=== PATIENT | female | born 1980 | race Caucasian/White ===

== ENCOUNTER 2025-01-01 16:58 | Outpatient (CLI) | payer MEDICAID, SELFPAY ==
[2025-01-01 20:36] LABS: Coronavirus 19, PCR Not Detected (NotDetected); Influenza A, PCR Not Detected (NotDetected); Influenza B, PCR Not Detected (NotDetected)
--- OUTSIDE RECORDS SUMMARY | 2025-01-02 13:18 | XMS_ITS | Encounter Summary ---
[facility] Organization [facility] Address [address] [place] [address] Care Team Providers Care Language Asst Name Role Phone Oz Yanes MD Primary Care Provider [phone] Reason for Visit * Reason Comments Med Refill Encounter Details Date Type Department Care Team (Late st Contact Info) Description 08/17/[address] [facility] FAMILY MEDICINE [address] [facility] [place] [address] Oz Yanes MD [address] [place] [address] Mild mood disorder Social History Tobacco Use Types Packs/Day Years Used Date Smoking Tobacco: Every Day Cigarettes Smokeless Tobacco: Never Alcohol Use Standard Drinks/Week Comments Never 0 (1 standard drink = 0.6 oz pur e alcohol) AUDIT-C Answer Date Recorded Frequency of Alcohol Consumption Never 07/06/2019 Average Number of Drinks Not on file 020 Frequency of Binge Drinking Not on file 06/17 PHQ-2 Answer Date Recorded Retired PHQ-9: Brief Depression Severity Measure Score 1 08/11/2022 PHQ-2 Answer Date Recorded Retired PHQ-9: Brief Depression Severity Measure Score 1 08/11/2022 Comments No Sex and Gender Information Value Date Recorded Sex Assigned at Not on file Legal Sex Female 4:24 PM EDT Gender Identity Not on file Sexual Orientation Not on file Occupation Industry Job Start Date Job End Date Not on file Not on file Not on file Not on file documented as of this encounter Plan of Treatment Upcoming Encounters Date Type Department Care Team (Late st Contact Info) Description 02/05/2025 10:00 AM EDT Office Visit [facility] OBGYN [address] [place] [id number] Venkata Hatfield MD [address] [address] documented as of this encounter Visit Diagnoses Diagnosis Mild mood disorder Unspecified episodic mood disorder documented in this encounter Additional Health Concerns Assessment Noted Time PHQ-2 Depression Total Score: 1 08/12/19 23 2:00 PM EDT documented as of this encounter Care Teams Language Asst Relationship Specialty Start Date End Date Oz Yanes MD [address] [place] [address] PCP - General Family Medicine 07/06/19 documented as of this encounter
--- OUTSIDE RECORDS SUMMARY | 2025-01-02 13:18 | XMS_ITS | Clinical Summary ---
Author Organization [facility] Address [address] [place] [id number] Care Team Providers Care Learning Officer Name Role Phone Oz Yanes MD Primary Care Provider [phone] Allergies No known active allergies Medications buprenorphine-na loxone (SUBOXONE) 8-2 MG per SL tablet DISSOLVE 2 TABLET(S) SUBLINGUALLY 1 TIME A DAY 1 Active Elidel 1 % cream 1 Active triamcinolone (KENALOG) 0.1 % cream 1 Active buprenorphine-na loxone (SUBOXONE) 8-2 MG film film DISSOLVE 2 FILMS UNDER THE TONGUE EVERY DAY 1 Active naloxone (NARCAN) 4 MG/0.1ML nasal spray 2 Active Umeclidinium-Joyce anterol (Anoro Ellipta) 62.5-25 MCG/ACT aerosol powder inhalerIndicatio ns:Panlobular emphysema Inhale 1 puff Daily. 60 each 5 5 Active sertraline (ZOLOFT) 100 MG tabletIndication s:Mild episode of recurrent major depressive disorder,Anxiety Take 2 tablets by mouth Daily. 60 tablet 5 5 Active Cariprazine HCl (Vraylar) 3 MG capsule capsuleIndicatio ns:Mild mood disorder Take 1 capsule by mouth Daily. 30 capsule 5 5 Active lisinopril-hydro chlorothiazide (PRINZIDE,ZESTOR ETIC) 20-25 MG per tabletIndication s:Primary hypertension Take 1 tablet by mouth Daily. 30 tablet 5 5 Active omeprazole (priLOSEC) 40 MG capsuleIndicatio ns:Dyspepsia,Eru ctation Take 1 capsule by mouth Daily. 30 capsule 5 5 Active Plecanatide (Trulance) 3 MG tabletIndication s:Drug induced constipation Take 1 tablet by mouth Daily. 30 tablet 5 5 Active meloxicam (MOBIC) 15 MG tabletIndication s:Multiple joint pain TAKE 1 TABLET BY MOUTH EVERY DAY WITH FOOD 90 tablet 1 5 Active cyclobenzaprine (FLEXERIL) 10 MG tabletIndication s:Costochondriti s 1 PO QHS 30 tablet 5 Active naproxen (Naprosyn) 500 MG tabletIndication s:Costochondriti s Take 1 tablet by mouth 2 (Two) Times a Day With Meals. 30 tablet 5 Active Active Problems Problem Noted Date Diagnosed Date Primary hypertension 11/23/2023 Panlobular emphysema 08/11/2022 Chronic idiopathic constipation 04/04/2020 Mild episode of recurrent major depressive disor kofi 07/06/2019 Anxiety 07/06/2019 Psoriasis 07/06/2019 Encounters Date Type Department Care Team Description 10/24/2024 12:45 PM EDT Office Visit [facility] [address] [facility] [place] [address] Oz Yanes MD Costochondritis (Primary Dx); Pelvic pain 10/24/2024 Travel from Last 3 Months Family History Medical History Relation Name Comments Lung cancer Father Diabetes Maternal Grandfather Heart disease Maternal Grandfather Diabetes Mother Heart disease Mother Hyperlipidemia Mother Hypertension Mother Breast cancer Paternal Aunt 50's Breast cancer Paternal Cousin 40's Breast cancer Paternal Grandmother 70's Heart disease Sister Ovarian cancer Neg Hx Relation Name Status Comments Father Maternal Grandfather Mother Alive Paternal Aunt Paternal Cousin Paternal Grandmother Sister Social History Tobacco Use Types Packs/Day Years Used Date Smoking Tobacco: Former Cigarettes Q uit: 04/16/2024 Smokeless Tobacco: Never Tobacco Cessation:Ready to Q uit: No; Counseling Given: Yes Alcohol Use Standard Drinks/Week Comments Never 0 (1 standard drink = 0.6 oz pur e alcohol) AUDIT-C Answer Date Recorded Frequency of Alcohol Consumption Never 07/06/2019 Average Number of Drinks Not on file 020 Frequency of Binge Drinking Not on file 06/17 PHQ-2 Answer Date Recorded Retired PHQ-9: Brief Depression Severity Measure Score 1 08/11/2022 PHQ-2 Answer Date Recorded Patient Health Questionnaire-2 Score 0 05/25/2024 Comments No Sex and Gender Information Value Date Recorded Sex Assigned at Not on file Legal Sex Female 4:24 PM EDT Gender Identity Not on file Sexual Orientation Not on file Occupation Industry Job Start Date Job End Date Not on file Not on file Not on file Not on file Last Filed Vital Signs Vital Sign Reading Time Taken Comments Blood Pressure 126/80 10/24/2024 12:56 PM EDT Pulse 82 10/24/2024 12:56 PM EDT Temperature 36.6 C (97.8 F) 10/24/2024 12:56 PM EDT Respiratory Rate 18 10/24/2024 12:56 PM EDT Oxygen Saturation 98% 10/24/2024 12:56 PM EDT Inhaled Oxygen Concentration - - Weight 82.1 kg (181 lb) 10/24/2024 12:56 PM EDT Height 160 cm (5' 2.99 ) 10/24/2024 12:56 PM EDT Body Mass Index 32.07 10/24/2024 12:56 PM EDT Plan of Treatment Upcoming Encounters Date Type Department Care Team (Late st Contact Info) Description 02/05/2025 10:00 AM EDT Office Visit [facility] OBGYN [address] [place] [address] Venkata Hatfield MD [address] [facility] [address] [place] [address] Health Maintenance Due Date Last Done Comments Annual Gynecologic Pelvic and Breast Exam 1980 Pneumococcal Vaccine 0-49 (1 of 2 - PCV) 1998 TDAP/TD VACCINES (1 - Tdap) 1998 PAP SMEAR 01/07/2000 ANNUAL PHYSICAL 07/06/2019 COLOGUARD 01/07/2024 COLON CANCER SCREENING 5 YEA R SIGMOIDOSCOPY 01/07/2024 COLONOSCOPY 01/07/2024 COLORECTAL CANCER SCREENING 01/07/2024 CT COLONOGRAPHY 01/07/2024 FECAL OCCULT BLOOD TEST 01/07/2024 FIT Testing (1 year) 01/07/2024 COVID-19 Vaccine (2023- season) 2024 MAMMOGRAM 02/01/2025 02/01/2023, 11/24/2022 INFLUENZA VACCINE 02/13/2025 LIPID PANEL 05/25/2025 05/25/2024, 08/25/2022 HEPATITIS C SCREENING Completed 04/26/2022 Procedures Procedure Name Priority Date/Time Associated Diagnosis Comments LIPID PANEL Routine 05/25/2024 2:17 PM EST Elevated cholesterol MAMMO DIAGNOSTIC DIGITAL TOMOSYNTHESIS RIGHT W CAD Routine 02/01/2023 11:34 AM EDT Abnormal mammogram from Last 3 Months or Most Recently Relevant to Health Maintenance Results * (ABNORMAL) Lipid Panel (05/25/2024 2:17 PM EST) Total Cholesterol 217(H) 100 - 199 mg/dL [facility] Triglycerides 159(H) 0 - 149 mg/dL [facility] HDL Cholesterol 42 >39 mg/dL [facility] VLDL Cholesterol Trevor 29 5 - 40 mg/dL [facility] LDL Chol Calc (NIH) 146(H) 0 - 99 mg/dL [facility] Blood 05/25/2024 2:17 PM EST 05/25/2024 Narrative [facility] - 05/26/2024 8:11 AM EST Performed at: 01 - [facility] [address] [id number] In Home Sales Consultant: Yogesh Oliveira PhD, Phone: [phone] Patient Fasting: Y us Oz Yanes MD LAB BLOOD ORDERABLES Final Resu lt [facility] [employer] [facility] ([facility]) [address] [place] [address], [facility] [address] [place], [place] [id number], * Mammo Diagnostic Digital Tomosynthesis Right With CAD (02/01/2023 11:34 AM EDT) Anatomical Region Laterality Modality Breast Right Mammography 02/01/2023 10:1 4 AM EDT Impressions 02/01/2023 11:44 AM EDT 1. Right breast: Benign cyst in the 930 right breast. Recommendation is for continued routine annual screening mammogram. 2. Today's findings and recommendations were discussed with the patient at the time of the examination by the breast care team. OVERALL ASSESSMENT: BI-RADS Category 2: Benign. Recommend continued routine follow-up. This report was finalized on 02/01/2023 11:44 AM by Mohini Ortez MD. Narrative 02/01/2023 11:44 AM EDT EXAM: MAMMO DIAGNOSTIC DIGITAL TOMOSYNTHESIS RIGHT W CAD, Limited right breast ultrasound- DATE:02/01/2023 10:13 AM INDICATION: Patient is a 43-year-old female who presents for diagnostic work-up of focal asymmetry in the right breast on baseline screening mammogram. COMPARISON: Comparison is made to baseline screening mammogram dated 11/24/2022 TECHNIQUE: 2D/3D spot right CC and MLO views as well as 2D/3D right true lateral was obtained. FINDINGS: Right breast: The breast tissue is predominantly fat density. Focal asymmetry in the upper outer quadrant of the right breast, quite superficial, persists on spot compression imaging. Targeted sonographic imaging of the right breast was performed. There is a circumscribed oval anechoic mass measuring up to 6 mm in the superficial 930 subareolar right breast. This is consistent with a cyst and correlates with the mammographic finding. Apple Kwon MD IMG MAMMOGRAPHY ORDERABLES Final Result from Last 3 Months or Most Recently Relevant to Health Maintenance Insurance [employer] [place] Care Teams Learning Officer Relationship Specialty Start Date End Date Oz Yanes MD [address] [place] [address] PCP - General Family Medicine 07/06/19
== END 2025-01-01 23:59 | disposition home or self-care (01) ==
LOC: LAB.DROPOF 01-02 13:11
PROVIDERS: PCP Student in an Organized Health Care Education/Training Program; Visit Provider Student in an Organized Health Care Education/Training Program
DX: J06.9 Acute upper respiratory infection, unspecified (principal)
CPT/HCPCS: 87631